=== PATIENT | female | born 1960 ===

== ENCOUNTER 2024-10-08 11:03 | Emergency (ER) | payer MEDICARE, OTHER, SELFPAY ==
[2024-10-08 11:05] VITALS: BP 164/88
[2024-10-08 11:22] LABS: % Basophils 0.6 % (0-2); % Eosinophils 0.9 % (0-6); % Immature Granulocytes 0.3 % (0-0.5); % Lymphocytes 26.2 % (20.5-51.1); % Monocytes 6.8 % (1.7-9.3); % Neutrophils 65.2 % (42.2-75.2); Absolute Eosinophils 0.1 10^3/uL (0-0.7); Absolute Lymphocytes 1.7 10^3/uL (1.2-3.4); Absolute Monocytes 0.5 10^3/uL (0.1-0.6); Absolute Neutrophils 4.3 10^3/uL (1.4-6.5); Hematocrit 42.9 % (37.0-47.0); Hemoglobin 13.9 g/dL (12.0-16.0); Mean Corp Hgb Conc. 32.4 g/dL (33.0-37.0); Mean Corpuscular Hgb 28.4 pg (27.0-31.0); Mean Corpuscular Volume 87.6 fL (81.0-99.0); Mean Platelet Volume 8.9 fL (7.4-10.4); Nucleated Red Blood Cells % 0 %; Platelet Count 263 10^3/uL (130-400); Red Cell Dist. Width 14.2 % (11.5-14.5); White Blood Cell Count 6.6 10^3/uL (4.8-10.8)
[2024-10-08 11:32] LABS: ALT (SGPT) 34 U/L (0-35); AST (SGOT) 27 U/L (14-36); Albumin 4.8 g/dl (3.5-5.0); Alkaline Phosphatase 82 U/L (38-126); Blood Urea Nitrogen 11 mg/dl (7-17); Calcium 10.2 mg/dl (8.4-10.2); Carbon Dioxide 24 mmol/L (22-30); Chloride 105 mmol/L (98-107); Glucose 128 mg/dl (70-99); Potassium 4.4 mmol/L (3.5-5.1); Sodium 140 mmol/L (135-145); Total Bilirubin 0.9 mg/dl (0.2-1.3); Total Protein 7.4 g/dl (6.3-8.2); eGFR > 60.00
[2024-10-08 11:37] VITALS: BMI 29.6
[2024-10-08 12:13] LABS: Urine Albumin Negative (Neg - Trace); Urine Bilirubin Negative (Negative); Urine Character Clear (Clear); Urine Color Yellow; Urine Glucose Negative (Negative); Urine Ketone Negative (Negative); Urine Leukocyte Negative (Negative); Urine Nitrite Negative (Negative); Urine Occult Blood Negative (Negative); Urine Urobilinogen Negative (Neg - 1+)
--- NOTE | 2024-10-08 13:17 | ED.GENMED ---
History of Present Illness
General
Chief Complaint: Female Primary Care Provider/Gu symptoms
Source: patient
Time Seen by Provider: 10/08/24 11:40
History of Present Illness
History of Present Illness:
64-year-old female presenting to the emergency department for evaluation after she started develop some lower abdominal/lower back discomfort last night accompanied with a vaginal burning and light discharge and light vaginal spotting last night and
continued into the morning. Patient does admit to some very mild urinary urgency sensation as well but no dysuria. She denies any fevers, chills, rigors, nausea, vomiting, bowel changes. She did not take any medications prior to arrival and
currently notes that her pain is tolerable and mild. Denies any history of similar. Patient does not have concern for STI. She has not had a menstrual in many years.
Past History
Past History
ED Past Medical History: Cancer
ED Past Surgical History: Other
Social History
Tobacco: Non-smoker
Alcohol: None
Drug: None
Personal:
Living: with family
Review of Systems
Review of Systems
All Other Systems: ROS reviewed and negative except as documented in HPI and ROS
Phy Exam
Physical Exam
Physical Exam:
GENERAL: Alert , in no apparent distress but does appear somewhat uncomfortable
EYE: clear conjunctiva b/l
HEAD: NCAT
ENT: o/p clr, mmm.
CARDIAC: Regular rate and rhythm .
LUNGS: Clear breath sounds bilaterally, no acute respiratory distress, no wheezes/rales/rhonchi
ABDOMEN: Soft, mild umbilical tenderness, no r/g, no cvat
PELVIC EXAM: Chaperoned by ED RAYA Haro: Minimal vaginal discharge, trace blood within the posterior portion of the vaginal vault but no active bleeding. Patient uncomfortable during the exam
NEUROLOGICAL: Alert and oriented
SKIN: Warm and dry, skin intact.
MUSCULOSKELETAL: well perfused.
PSYCH: Normal and appropriate interaction.
Scores
Heart Failure Risk
Heart Failure Risk Score: Not Applicable
Heart Score for Chest Pain Patients
STEMI patient?: Not applicable
Withdrawal Assessment of Alcohol
Withdrawal Assessment Completed?: Not applicable
Course
Orders/Labs/Results
Orders:
Orders
10/08/24 11:13
Complete Blood Count/With Diff Urgent
Comprehensive Metabolic Panel Urgent
Urinalysis Reflex To Culture Urgent
Date Specimen was Collected: 10/08/24
Time Specimen was Collected: 11:10
10/08/24 12:25
CT Abd/pelvis W Iv Cont Urgent
Comment:
Reason For Exam: lower abd pain
10/08/24 13:40
Vaginitis Panel by [facility] [S] Urgent
Abnormal Lab Results
10/08/24
11:13
MCHC 32.4 L g/dL
(33.0-37.0)
Glucose 128 H mg/dl
(70-99)
10/08/24 11:13
10/08/24 11:13
Vital Signs
Initial and Last Documented VS:
Initial Vital Signs
Temp Pulse Resp BP Pulse Ox
98.9 F 83 12 164/88 98
10/08/24 11:05 10/08/24 11:05 10/08/24 11:05 10/08/24 11:05 10/08/24 11:05
Last Documented Vital Signs
Temp Pulse Resp BP Pulse Ox
98.9 F 83 12 164/88 98
10/08/24 11:05 10/08/24 11:05 10/08/24 11:05 10/08/24 11:05 10/08/24 11:05
MDM/Problems Addressed
Differential Diagnosis Includes:
Urinary tract infection, less concern for pelvic/genital infection, torsion considered however given description of the pain thought to be less likely, appendicitis, diverticulitis or other GI pathology
MDM/Problems Addressed:
64-year-old female presenting the ER for evaluation of what she reports to be a vaginal burning sensation with some light discharge, exam reveals minimal discharge but patient did have some pelvic tenderness during the pelvic exam. Urinary tract
infection considered however urinalysis collected in triage is negative for any signs of infection or blood. Will order CT scan to further evaluate. Patient declines anything for pain at this time.
*Radiology
Radiology exam reviewed: radiology read reviewed
*Pulse Oximetry
Patient hypoxic: no
*Critical Care Note
Total Time (30-74mins, 75-104mins- exclusive of procedures): Not Applicable
Patient Management
Escalation/DeEscalation of care consider admission/obs:
Patient CT scan without any evidence for acute pathologies. Mild constipation on the scan noted. Patient was advised she can trial [id number] stool softener. I did send a prescription for Diflucan to patient's pharmacy given she reported
the discharge and vaginal irritation. Patient does have [employer] she can follow-up with if symptoms persist. Also encourage close follow-up with primary care provider. Return precautions discussed. Stable for discharge home.
ED Attending Note
-
Portions of this chart may have been created with voice recognition software.� Occasional wrong word or��sound alike� substitutions may have occurred due to the inherent limitations of voice recognition software.
Discharge Plan
Departure
Patient Disposition: Home (Routine Discharge)
Date of Disposition: 10/08/24
Time of Disposition: 15:07
Patient with high blood pressure during this ER visit?: Yes
Discharge Problem:
Acute pelvic pain
Instructions: Pelvic Pain ED
Prescriptions:
New
fluconazole [Diflucan] 200 mg tablet
200 mg PO ONCE Qty: 1 0RF
Referrals:
Melissa Bejarano MD [Family Provider] -
Interventions
Interventions:
*Risk Screen - Suicide Last Done: 10/08/24 11:05
*General Assessment Last Done: 10/08/24 11:05
*Neglect/Abuse Screening Last Done: 10/08/24 11:05
*ED COVID-19 Vaccine History Last Done: 10/08/24 11:37
ED-Female Genitourinary Assessment Last Done: 10/08/24 11:34
Discharge Date and Time
Print Language: PASHTO
[2024-10-08 15:33] VITALS: BP 160/84
== END 2024-10-08 15:34 | disposition home or self-care (01) ==
LOC: EMR 11:03
PROVIDERS: Emergency Medicine; EMERGENCY PHYSICIAN Emergency Medicine; FAMILY PHYSICIAN Family Medicine
DX: R10.2 Pelvic and perineal pain (principal); R03.0 Elevated blood-pressure reading, without diagnosis of hypertension
CPT/HCPCS: 99285; 74177; 80053; 81003; 85025; Q9967